=== PATIENT | female | born 2000 | race Caucasian/White ===

== ENCOUNTER 2021-03-12 18:06 | Emergency (ER) | payer OTHER, SELFPAY ==
--- NOTE | ~2021-03-12 | XR_ITS ---
EXAMINATION: XR chest 2V 03/12/2021 18:40 INDICATION: Left-sided chest pain. Hypertension. PROCEDURE: 2 view chest COMPARISON: No prior studies for comparison. FINDINGS: The lungs are clear. The cardiomediastinal silhouette is within normal limits. There are no pleural effusions. There is no pneumothorax suspected. IMPRESSION: 1: NO ACUTE CARDIOPULMONARY DISEASE. Reviewed, dictated and finalized at location A.
--- NOTE | 2021-03-12 18:21 | ECG_ITS ---
Measurements Intervals Chapman Rate: 83 P: 63 MT: 138 QRS: 28 QRSD: 89 T: 17 QT: 366 QTc: 432 Interpretive Statements SINUS RHYTHM WITH SINUS ARRHYTHMIA BASELINE ARTIFACT- II, III, AVL, AVF NORMAL ECG Electronically Signed On 03-12-2021 18:35:53 CDT by Jed Barnett D.O.
[2021-03-12 18:22] VITALS: BP 152/105; PULSE 73; RESP 18; TEMP 37.3; O2SAT 100
--- NOTE | 2021-03-12 18:38 | ED.GENADULT ---
HPI - General Adult General Chief complaint: Chest Pain Stated complaint: Chest Pain,Elevated BP Time Seen by Provider: 03/12/21 18:25 Source: patient Mode of arrival: ambulatory Limitations: no limitations History of Present Illness HPI narrative: Lou Harris is a 20 yo female with a PMH of major depression, PCOS, morbid obesity obesity and gastric bypass comes to the [facility] complaining of chest pain that is worsened since 450p. Patient states his fifth time this is happened and she has been logging these episodes since they began. She has a appointment with her nanotechnology engineering technologist on April. She states that she has a lot of burping when she eats and makes the chest pain worse. She has not eaten today and states that her blood pressure has been elevated today at 151/105. She has no history of hypertension and has a primary care physician Related Data Home Medications Medication Instructions Recorded Confirmed blood sugar diagnostic [OneTouch 03/12/21 03/12/21 Ultra Test] norethindrone ac-eth estradiol 1 tablet PO DAILY 03/12/21 03/12/21 [Holli] Allergies Allergy/AdvReac Type Severity Reaction Status Date / Time No Known Allergies Allergy Mild Verified 03/12/21 18:19 Review of Systems Review of Systems: CONSTITUTIONAL: Denies fever, chills, sweats. EYES: Denies visual changes, redness, discharge. ENT: Denies rhinorrhea, congestion, sore throat, otalgia. CARDIOVASCULAR: Has chest pain, she is burping, palpitations, edema. RESPIRATORY: Denies dyspnea, wheezing, cough GASTROINTESTINAL: Denies abdominal pain, nausea, vomiting, diarrhea. GENITOURINARY: Denies dysuria, hematuria, abnormal discharge SKIN: Denies rash or itching. NEUROLOGIC: Denies numbness, or focal weakness. PSYCHIATRIC: Denies anxiety or depression. [facility] Past Medical History Medical History BMI 29.0-29.9,adult Surgical History Surgical History Gastric bypass status for obesity in 2019 Family History Family History Father Hypertension Mother Family history of diabetes mellitus in first degree relative Diabetes mellitus Grandparent Family history of malignant neoplasm of uterus Family history of heart disease in male family member before age 55 Sibling No problems noted. 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 There is no relevant family history pertinent to the presenting complaint. Blood pressure elevated this evening has been told to follow-up with PCP Exam Narrative: GENERAL: This is a well-nourished, well-developed patient, in moderate distress. HEAD: normocephalic, atraumatic. EYES: Sclera clear/white. Vision is grossly intact. EARS: External ears normal, . Hearing grossly intact. NOSE: External nose normal without nasal discharge, nares without redness, no rhinorrhea. THROAT: Mucous membranes moist, NECK: Neck supple, CARDIOVASCULAR: Regular rate and rhythm without murmurs, gallops, or rubs. RESPIRATORY: Clear to auscultation. Breath sounds equal bilaterally. No wheezes, rales, or rhonchi. GASTROINTESTINAL: Abdomen soft, SKIN: warm, intact with no suspicious lesions or rash, good texture and turgor. NEURO: awake, alert, and oriented to person, place and time. There were no obvious focal neurologic abnormalities. Steady gait EXTREMITIES: Normal range of motion. BACK: Nontender without defo
[2021-03-12 18:39] LABS: Glucose Point of Care 64 mg/dl (65-105)
[2021-03-12] MEDS: FAMOTIDINE 20 MG TABLET PO (19:07)
[2021-03-12 19:15] VITALS: BP 142/92; PULSE 85; O2SAT 100
== END 2021-03-12 19:30 | disposition home or self-care (01) ==
PROVIDERS: Emergency Provider Nurse Practitioner; PCP Family Medicine
DX: R07.89 Other chest pain (principal); Z98.84 Bariatric surgery status
CPT/HCPCS: 71046; 82948; 93005; 99213; A9270; G0463

== ENCOUNTER 2021-03-15 10:54 | Outpatient (CLI) | payer OTHER, SELFPAY ==
--- NOTE | ~2021-03-15 | US_ITS ---
EXAMINATION: US abdomen complete EXAM DATE: 03/15/2021 12:03 INDICATION: R10.11 - Right upper quadrant pain; bariatric surgery status. TECHNIQUE: Multiple grayscale and Doppler images of the complete abdomen were obtained (by a technolo gist who performed the scan) and subsequently reviewed. There is no prior study for comparison. FINDINGS: The abdominal aorta is normal in caliber. Visualized portion IVC is patent. Pancreas poorly visua lized from overlying bowel gas. The liver has normal echogenicity and contour. There are no focal liver lesions identified. There is no evidence of intrahepatic biliary duct dilation. Portal venous flow was seen in the hepatopedal , normal direction and has normal Doppler waveform. Common bile duct measures 5 mm, which is normal. The gallbladder wall is normal in thickness, with ex pected amount of distention. No sonographic evidence of pericholecystic fluid. There is no cholelit hiases. Technologist reported patient had right upper quadrant tenderness. Right kidney: There is normal contour and echogenicity. It measures 10.6 x 4.6 x 6.4 centimeters. There are no focal renal lesions identified. There is no hydronephrosis. Left kidney: There is normal contour and echogenicity. It measures 9.6 x 4.9 x 4.6 centimeters. Th ere are no focal renal lesions identified. There is no hydronephrosis. The spleen measures 11.5 centimeters and is morphologically normal. IMPRESSION: 1. Sonographically normal gallbladder. Reviewed, dictated and finalized at location B.
[2021-03-15 12:36] LABS: Basophils Absolute Auto 0.1 K/mm3 (0.0-0.1); Basophils Percent Auto 0.6 % (0.2-1.2); Eosinophils Absolute Auto 0.1 K/mm3 (0-0.3); Eosinophils Percent Auto 1.4 % (0-4.4); Hematocrit 43.7 % (37.0-47.0); Hemoglobin 14.6 g/dL (12.0-15.0); Immature Granulocyte Absolute 0.02 K/mm3 (0.00-0.031); Immature Granulocyte Percent A 0.2 % (0-0.5); Lymphocytes Absolute Auto 2.78 K/mm3 (0.9-3.2); Lymphocytes Percent Auto 32.9 % (18.3-44.2); Mean Corpuscular HGB Conc 33.4 g/dl (32-36); Mean Corpuscular Hemoglobin 29.9 pg (26-34); Mean Corpuscular Volume 89.4 fl (80-100); Mean Platelet Volume 10.3 fl (7.4-10.4); Monocytes Absolute Auto 0.5 K/mm3 (0.1-0.6); Neutrophils Percent Auto 58.9 % (45.5-73.1); Platelet Count Result 323 k/mm3 (150-375); Red Blood Count 4.89 M/mm3 (4.2-5.4); Red Cell Distribution Width 12.4 % (11.5-14.5); White Blood Count 8.4 K/mm3 (4.5-10.0)
[2021-03-15 12:52] LABS: Alanine Aminotransferase 21 U/L (4-35); Alkaline Phosphatase 85 U/L (38-126); Amylase 56 U/L (30-110); Anion Gap 12 mmol/L (8-16); Aspartate Amino Transferase 23 U/L (14-36); Bilirubin,Total 0.6 mg/dL (0.2-1.3); Blood Urea Nitrogen 14 mg/dL (7-17); Calcium 10.1 mg/dL (8.4-10.2); Carbon Dioxide 25 mmol/L (22-30); Chloride 103 mmol/L (98-107); Estimated Glomerular Filt Rate > 60; Glucose 90 mg/dL (65-110); Lipase 126 U/L (23-300); Potassium 4.7 mmol/L (3.4-5.0); Sodium 140 mmol/L (137-145)
== END 2021-03-15 10:55 | disposition home or self-care (01) ==
PROVIDERS: PCP Family Medicine; Visit Provider Nurse Practitioner Family
DX: R10.11 Right upper quadrant pain (principal); Z98.84 Bariatric surgery status
CPT/HCPCS: 36415; 76700; 80053; 82150; 83690; 85025